=== PATIENT | female | born 1990 | race Caucasian/White ===

== ENCOUNTER 2016-06-23 01:19 | Emergency (ER) | payer OTHER ==
[~2016-06-23] VITALS: Ht 167.6 cm; Wt 60.0 kg
[~2016-06-23 01:19] MED LIST: BCPILLS PO; CLR10 PO; NYQUILL PO
[2016-06-23 01:21] VITALS: TEMP 36.4; Ht 167.6 cm; Wt 60.0 kg
[2016-06-23] MEDS ORDERED: METOCLOPRAMIDE HCL INJ 5 MG/ML 2 ML VIAL IV STA (01:47)
[2016-06-23] MEDS ORDERED: DiphenhydrAMINE HCL 50 MG/ML VIAL IV STA (01:47)
[2016-06-23] MEDS ORDERED: SODIUM CHLORIDE 0.9% 1000ML 1,000 ML IV STA ×2 (01:47)
[2016-06-23] MEDS ORDERED: DICYCLOMINE HCL 10 MG/ML 2 ML AMP IM ONE (02:00)
[2016-06-23 02:31] LABS: HEMATOCRIT 45.5 % (37-47); MEAN CORPUSCULAR HEMOGLOBIN 29.6 pg (25-34); MEAN CORPUSCULAR HGB CONC 35.6 g/dl (32-36); MEAN PLATELET VOLUME 10.9 fL (7.4-10.4); PLATELET COUNT 320 K/uL (130-400); RED BLOOD COUNT 5.48 M/uL (4.2-5.4); WHITE BLOOD COUNT 25.96 K/uL (4.8-10.8)
[2016-06-23 03:03] LABS: BASO % 0.1 %; BASO ABS # 0.03 K/uL (0-0.2); COMPLETE YES; EOS % 0.1 %; IG% 0.3 %; LYMPH % 10.7 %; LYMPH ABS # 2.77 K/uL (1.2-3.4); MONO % 4.1 %; NEUT % 84.7 %
[2016-06-23 03:05] LABS: BUN/CREATININE RATIO 11.4 (10-20); CALCIUM 9.8 mg/dl (8.5-10.1); CREATININE 1.2 mg/dl (0.60-1.20); POTASSIUM 3.4 mmol/L (3.5-5.1); PREG INTERNAL NEGATIVE QC NEG CLEAR BACKGROUND; PREG INTERNAL POSITIVE QC POS CONTROL LINE
--- NOTE | 2016-06-23 05:13 | EMERGENCY ROOM VISIT NOTE ---
History First contact with patient: 01:23 Chief Complaint: GI ASSESSMENT Stated Complaint: STOMACH PAIN - NAUSEA - PASSED OUT Nursing Triage Summary: Pt reports that she has not felt well since Thursday. Pt reports vomiting and diarrhea started tonight around midnight. Pt reports not being able to control her bowels. History of Present Illness The patient is a 25 year old female who presents to the Emergency Room with complaints of nausea, vomiting, diarrhea and lightheadedness for the past day. Patient states she nearly passed out in the bathroom from the vomiting or diarrhea. No recent antibiotics. No well water. Patient denies chest pain, dyspnea, fever, chills, localized abdominal pain, urinary symptoms. She is unable to keep fluids down. Review of Systems See HPI for pertinent positives & negatives. A total of 10 systems reviewed and were otherwise negative. Past Medical/Surgical History None Social History Smoking Status: Never Smoker Smokeless Tobacco Use: No Alcohol Use: none Drug Use: none Marital Status: in relationship Housing Status: lives with significant other Current/Historical Medications Scheduled Control Pills ( Control Pills), 1 TAB PO DAILY Allergies Coded Allergies: No Known Allergies (Unverified , 06/23/16) Physical Exam Vital Signs Date Time Temp Pulse Resp B/P Pulse Ox O2 Delivery O2 Flow Rate FiO2 06/23/16 04:00 77 12 98/74 97 Room Air 06/23/16 03:15 82 19 103/81 99 Room Air 06/23/16 02:30 67 16 91/69 99 Room Air 06/23/16 02:19 67 06/23/16 02:18 68 15 93/66 100 Room Air 06/23/16 01:21 36.4 76 18 101/72 96 Room Air Physical Exam VITALS: Vitals are noted on the nurse's note and reviewed by myself. Vital signs stable. GENERAL: Female, in no acute distress, nondiaphoretic, well-developed well- nourished. SKIN: The skin was without rashes, erythema, edema, or bruising. There is no tenting of the skin. Capillary reflex less than 2 seconds. HEAD: Normocephalic atraumatic. EARS: External auditory canals clear, tympanic membranes pearly calvillo without erythema or effusion bilaterally. EYES: Pupils equal round and reactive to light and accommodation. Conjunctivae without injection, sclerae without icterus. Extraocular movements intact. NOSE: Patent, turbinates without inflammation or discharge. MOUTH: Mucous membranes mildly dry. Pharynx without erythema or exudate. Uvula midline. Airway patent. Tongue does not deviate. NECK: Supple without nuchal rigidity. No lymphadenopathy. No thyromegaly. Cervical spine is nontender. No JVD. HEART: Regular rate and rhythm without murmurs gallops or rubs. LUNGS: Clear to auscultation bilaterally without wheezes, rales or rhonchi. No dullness to percussion. No retractions or accessory muscle use. ABDOMEN: Positive bowel sounds x 4. Normal tympanic percussion. Soft, nontender, without masses or organomegaly. Mobley sign negative. No guarding or rebound tenderness. No CVA tenderness MUSCULOSKELETAL: No muscle atrophy, erythema, or edema noted. NEURO: Patient was alert and oriented to person place and time. Normal sensation to light and sharp touch. No focal neurological deficits. Medical Decision & Procedures Laboratory Results 06/23/16 02:16 Red Blood Count 5.48, Mean Corpuscular Volume 83.0, Mean Corpuscular Hemoglobin 29.6, Mean Corpuscular Hemoglobin Concent 35.6, Mean Platelet Volume 10.9, Neutrophils (%) (Auto) 84.7, Lymphocytes (%) (Auto) 10.7, Monocytes (%) (Auto) 4.1, Eosinophils (%) (Auto) 0.1, Basophils (%) (Auto) 0.1, Neutrophils # (Auto) 21.97, Lymphocytes # (Auto) 2.77, Monocytes # (Auto) 1.07, Eosinophils # (Auto) 0.03, Basophils # (Auto) 0.03 06/23/16 02:16 Test 06/23/16 02:16 White Blood Count 25.96 K/uL (4.8-10.8) Red Blood Count 5.48 M/uL (4.2-5.4) Hemoglobin 16.2 g/dL (12.0-16.0) Hematocrit 45.5 % (37-47) Mean Corpuscular Volume 83.0 fL (80-100) Mean Corpuscular Hemoglobin 29.6 pg (25-34) Mean Corpuscular Hemoglobin Concent 35.6 g/dl (32-36) Platelet Count 320 K/uL (130-400) Mean Platelet Volume 10.9 fL (7.4-10.4) Neutrophils (%) (Auto) 84.7 % Lymphocytes (%) (Auto) 10.7 % Monocytes (%) (Auto) 4.1 % Eosinophils (%) (Auto) 0.1 % Basophils (%) (Auto) 0.1 % Neutrophils # (Auto) 21.97 K/uL (1.4-6.5) Lymphocytes # (Auto) 2.77 K/uL (1.2-3.4) Monocytes # (Auto) 1.07 K/uL (0.11-0.59) Eosinophils # (Auto) 0.03 K/uL (0-0.5) Basophils # (Auto) 0.03 K/uL (0-0.2) RDW Standard Deviation 38.0 fL (36.4-46.3) RDW Coefficient of Variation 12.6 % (11.5-14.5) Immature Granulocyte % (Auto) 0.3 % Immature Granulocyte # (Auto) 0.09 K/uL (0.00-0.02) Anion Gap 14.0 mmol/L (3-11) Est Creatinine Clear Calc Drug Dose 67.6 ml/min Estimated GFR () 73.3 Estimated GFR (Non- 63.2 BUN/Creatinine Ratio 11.4 (10-20) Calcium Level 9.8 mg/dl (8.5-10.1) Human Chorionic Gonadotropin, Qual NEG (NEG) Date/Time Source Procedure Growth Status 06/23/16 01:40 Stool C.difficile Toxin B Gene (PCR) - Final No C. difficile toxin B gene detected Complete Medications Administered Medications (Trade) Dose Ordered Sig/Obie Route Start Time Stop Time Status Last Admin Dose Admin Sodium Chloride (Nss 1000ml) 1,000 ml @ 999 mls/hr Q1H1M STAT IV 06/23/16 01:47 06/23/16 02:47 DC 06/23/16 01:47 999 MLS/HR Metoclopramide HCl (Reglan Inj) 10 mg NOW STAT IV 06/23/16 01:47 06/23/16 01:54 DC 06/23/16 02:23 10 MG Dicyclomine HCl (Bentyl Inj) 20 mg NOW ONCE IM 06/23/16 02:00 06/23/16 02:01 DC 06/23/16 02:24 20 MG ED Course Prior records/ancillary studies reviewed. Triage Nursing notes reviewed. Additional history obtained from the family. The patient's history was concerning for nausea, vomiting, diarrhea, and abdominal pain. Differential diagnosis: Etiologies such as gastroenteritis, food borne illness, infections, appendicitis , diverticulitis, inflammatory bowel disease, obstruction, GI bleed, biliary pathology, as well as others were entertained. Physical examination findings: As above. Abdominal examination revealed no tenderness. Vital signs reviewed and revealed stable. ER treatment provided: IV hydration 1 L NSS. Reglan, Benadryl, fentanyl On reassessment the patient felt better. Patient was tolerating p.o. intake. Diagnostics interpretation by me: The labs revealed leukocytosis, negative C. difficile, no worrisome electrolyte abnormality Patient was tolerating fluids. She is feeling better. She had no abdominal pain on exam. She requested to leave. Patient initially was rolling around and making a scene when she initially arrived. She then settled down after being medicated as above. This appears to be consistent with vomiting and diarrhea. Patient did not have acute abdomen on exam. She is well-appearing. She was tolerating fluids. She is advised to do clear liquid diet today and the progress aside to bland diet tomorrow. She was advised to repeat her CBC in a week as it was elevated. Patient was able to get a hold of her father and states she normally has an elevated white blood count. She still is advised to follow-up for this. Patient denies knowing about an elevated white blood count in the past but She is unsure. She is advised to return to the immediate for abdominal pain, fevers , vomiting, worsening signs or symptoms or as needed. By the evaluation outlined above emergent etiologies such as appendicitis, diverticulitis, obstruction, cardiac sources, mesenteric ischemia, aortic pathology, inflammatory bowel disease, renal colic, PUD, biliary pathology, UTI, as well as others were deemed relatively unlikely. The pt informed about the findings as listed above. All questions were answered and pleased with the treatment. Return instructions were outlined and the patient was discharged in stable condition. Outpatient prescription management: Zofran Referral: The patient was referred to their primary care physician for follow-up in 2 to 3 days for a recheck of the current condition. Medical Decision As above Impression Primary Impression: Nausea vomiting and diarrhea Additional Impression: Leukocytosis Departure Information Dispostion Home / Self-Care Condition GOOD Referrals No Doctor, Assigned (PCP) Patient Instructions [facility] Additional Instructions DO NOT drive, drink alcohol, operate machinery, or perform dangerous activities today. You were given medications in the ER that can affect your ability to safely function or operate a vehicle. Repeat your CBC in one week with family care. It was high today. Zofran(odansetron) tablets 4mg: Take one and allow it to dissolve in your mouth every four to six hours as needed for nausea or vomiting. Acetaminophen(Tylenol) may be used for fever or pain. Use 1000mg every six hours as needed. Avoid using more than 3000mg in a 24 hour period. Rest and drink plenty of fluids as tolerated. Slow sips of water or sports drinks are recommended instead of large amounts all at once. Continue current medications. [place] diet the next few days. Return to the ER for persistent vomiting, fevers, abdominal pain, chest pains, difficulty breathing, black or bloody stools, worsening of your condition, or as needed. Follow up with your primary physician in 2-3 days for a recheck of your current condition. Problem Qualifiers Additional Impression: Leukocytosis Leukocytosis type: unspecified Qualified Codes: D72.829 - Elevated white blood cell count, unspecified
[2016-06-23] MEDS ORDERED: ONDANSETRON HOME PACK 4MG OD TAB ONE (05:17)
[2016-06-23 05:24] VITALS: BP 108/75; PULSE 75; O2SAT 99
== END 2016-06-23 05:25 | disposition home or self-care (01) ==
LOC: C.EDB 01:22
DX: R11.2 Nausea with vomiting, unspecified (principal); R19.7 Diarrhea, unspecified; D72.829 Elevated white blood cell count, unspecified; Z79.3 Long term (current) use of hormonal contraceptives

== ENCOUNTER 2023-02-09 19:16 | Inpatient (IN) ==
[2023-02-09] MEDS ORDERED: LACTATED RINGER'S 1,000 ML IV SCH ×2 (20:00→22:49)
--- NOTE | 2023-02-09 20:05 | History & Physical Report ---
Date of Service February 09, 2023 Assessment & Plan (1) Breech presentation: Plan: Membranes ruptured, breech presentation. Reviewed informed consent in detail, questions answered. Will proceed to . Patient agreeable. History of Present Illness Chief Complaint: rupture of membranes Primary Care Provider: MP PCP 32yo @ 40 03/22, presented to L&D after spontaneous rupture of membranes at home - clear fluid. + movement, no vaginal bleeding. Occasional contractions. Allergies Allergy/AdvReac Type Severity Reaction Status Date / Time No Known Drug Allergies Allergy nka Verified 02/09/23 19:38 Home Medications Medication Instructions Recorded Confirmed Type vit no.95-ferrous 1 tab PO DAILY #90 tabs 04/28/22 02/09/23 Rx fumarate 28 mg-folic acid 800 mcg tablet () Patient History Medical History Migraine PCOS (polycystic ovarian syndrome) Surgical History Nausea and vomiting after administration of anesthetic agent History of removal of skin mole H/O arthroscopic knee surgery right x 2 [place] teeth extracted Family History Other Diabetes Denies family history of Ovarian cancer Breast cancer Colorectal cancer Uterine cancer Social History Smoking Status: Never smoker Second Hand Exposure: No; Do You Dip or Chew Tobacco: No; Hx Alcohol Use: No Hx Substance Use: No Preferred Language: Cameroonian Communication Ability: Effective Word Processing Supervisor Required: No Beliefs That Will Affect Care: None marital status: marital status details: Cristian (29) [phone] Current Living Situation: Spouse Current Living Situation Comment: lives with spouse, 1 dog. 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 Constitutional: WD/WN, vitals as above Respiratory: normal respiratory effort, lungs clear to auscultation no respiratory distress Cardiovascular: Rate/Rhythm: regular rate and regular rhythm Gastrointestinal (Abdomen): Inspection/Auscultation: abdomen normal to inspection Percussion/Palpation: abdomen soft; abdomen nontender Gravid. No s/s chorio or abruption. Skin: no rashes, warm and dry Psychiatric: A+Ox3, euthymic affect Results & Data Vital Signs (Past 12 Hours) Vital Signs Temp Pulse Resp BP 02/09/23 19:38 36.8 C 18 02/09/23 19:34 36.8 C 83 18 106/55 L Monitoring External Monitor FHT Cat 1 [place] occ Coding Level of Care Code None Diagnoses Breech presentation O32.1XX0
[2023-02-09 20:28] LABS: Basophils # (auto) 0.04 K/uL (0.00-0.20); Basophils % (auto) 0.4 %; Eosinophils # (auto) 0.04 K/uL (0.00-0.50); Eosinophils % (auto) 0.4 %; Hematocrit (blood only) 39.5 % (37.0-47.0); Hemoglobin 13.4 g/dl (12.0-16.0); Immature Granulocytes # (auto) 0.04 K/uL (0.01-0.20); Immature Granulocytes % (auto) 0.4 %; Lymphocytes # (auto) 1.97 K/uL (1.20-3.40); Lymphocytes % (auto) 17.6 %; Mean Corpuscular Hemoglobin 29.7 pg (25.0-34.0); Mean Corpuscular Hgb Conc 33.9 g/dL (32.0-36.0); Mean Corpuscular Volume 87.6 fL (80.0-100.0); Mean Platelet Volume 11.5 fL (9.4-12.4); Monocytes # (auto) 0.76 K/uL (0.11-0.59); Monocytes % (auto) 6.8 %; Neutrophils # (auto) 8.33 K/uL (1.40-6.50); Neutrophils % (auto) 74.4 %; Platelet Count 142 K/uL (130-400); RDW Coefficient of Variation 13.2 % (11.5-14.5); RDW Standard Deviation 41.5 fL (36.4-46.3); Red Blood Count 4.51 M/uL (4.20-5.40); White Blood Count 11.18 K/ul (4.8-10.8)
[2023-02-09] MEDS ORDERED: ceFAZolin 2000MG 2,000 MG/15 ML SYR IV SCH (20:30)
[2023-02-09] MEDS ORDERED: CITRIC ACID/SODIUM CITRATE 15 ML UDC PO SCH (20:45)
[2023-02-09] MEDS ORDERED: MoRPHine SULFATE PF 1 MG/ML 10 ML AMP/VIAL ONE (20:45)
--- NOTE | 2023-02-09 20:48 | Anesthesiology Consultation ---
Date of Service February 09, 2023 Assessment & Plan Chart Review Chart Review: Acceptable Risk for Surgery Consults Requested none History Surgery Operation Date: 02/09/23 20:30 Proposed Procedures p Section in - Neida Ladd DO Height/Weight Height: 5 ft 5 in Weight: 81.193 kg Allergies Allergy/AdvReac Type Severity Reaction Status Date / Time No Known Drug Allergies Allergy nka Verified 02/09/23 19:38 Medications Home Medications Medication Instructions Recorded Confirmed Last Taken vit no.95-ferrous 1 tab PO DAILY #90 tabs 04/28/22 02/09/23 02/09/23 08:00 fumarate 28 mg-folic acid 800 mcg tablet () Active Medications Generic Name Dose Route Start Last Admin Trade Name Rupertq PRN Reason Stop Dose Admin Lactated Ringer's 1,000 mls @ 999 mls/hr 02/09/23 20:00 02/09/23 20:25 Lr IV 02/09/23 21:00 999 mls/hr .Q1H1M RENNY Administration NPO Date Last Intake of Fluids: 02/09/23 Time Last Intake of Fluids: 17:00 Date Last Intake of Solids: 02/09/23 Time Last Intake of Solids: 18:00 Past Medical History Medical History Migraine PCOS (polycystic ovarian syndrome) Past Family History Family History Other Diabetes Denies family history of Ovarian cancer Breast cancer Colorectal cancer Uterine cancer Past Surgical History Surgical History Nausea and vomiting after administration of anesthetic agent History of removal of skin mole H/O arthroscopic knee surgery right x 2 [place] teeth extracted Social History Smoking Status: Never smoker Do You Dip or Chew Tobacco: No Hx Alcohol Use: No Hx Substance Use: No substance use type: does not use Physical Exam Vital Signs Last Vital Signs Temp 36.8 C 02/09/23 19:38 Pulse 83 02/09/23 19:34 Resp 18 02/09/23 19:38 BP 106/55 L 02/09/23 19:34 Testing Laboratory Results 02/09/23 20:16
[2023-02-09] MEDS ORDERED: ePHEDrine sulfate 50 MG/ML AMP IV PRN (20:50)
[2023-02-09] MEDS ORDERED: PROMETHAZINE HCL 12.5 MG in SODIUM CHLORIDE 0.9% 50 ML IV PRN (20:50)
[2023-02-09] MEDS ORDERED: LACTATED RINGER'S 500 ML IV PRN (20:50)
[2023-02-09] MEDS ORDERED: NALOXONE HCL 0.08 MG in SYRINGE 1.8 ML IV PRN (20:50)
[2023-02-09] MEDS ORDERED: METOCLOPRAMIDE HCL 10 MG in SODIUM CHLORIDE 0.9% 50 ML IV PRN (20:50)
[2023-02-09] MEDS ORDERED: HYDROmorphone INJ 0.5 MG/0.5 ML SYR IV PRN (20:50)
[2023-02-09] MEDS ORDERED: diphenhydrAMINE 50 MG/ML VIAL IV PRN (20:50)
[2023-02-09] MEDS ORDERED: ONDANSETRON INJ 2 MG/ML 2 ML VIAL IV PRN (20:50)
[2023-02-09] MEDS ORDERED: NALBUPHINE HCL 5 MG in SYRINGE 0 ML IV PRN (20:50)
[2023-02-09] MEDS ORDERED: NALOXONE HCL 1 MG in SODIUM CHLORIDE 0.9% 1,000 ML IV PRN (20:50)
[2023-02-09] MEDS ORDERED: MEPERIDINE HCL 25 MG/ML CARP/VIAL IV PRN (20:50)
[2023-02-09] MEDS ORDERED: MoRPHine SULFATE PF 1 MG/ML 10 ML AMP/VIAL INT SPINAL ONE (20:50)
[2023-02-09] MEDS ORDERED: NALOXONE HCL 0.4 MG/1 ML VIAL/CARP IV PRN (20:50)
[2023-02-09] MEDS ORDERED: ACETAMINOPHEN 1,000 MG/100 ML VIAL IV PRN (20:51)
[2023-02-09] MEDS ORDERED: OXYTOCIN 10 UNITS/ML VIAL ONE (20:53)
[2023-02-09] MEDS ORDERED: PHENYLEPHRINE HCL 10 MG/ML VIAL ONE (20:53)
[2023-02-09] MEDS ORDERED: ePHEDrine sulfate 50 MG/ML AMP ONE (20:54)
[2023-02-09] MEDS ORDERED: NO NARCOTICS OR SEDATIVES SCH (21:00)
[2023-02-09] MEDS ORDERED: SODIUM CHLORIDE 0.9% 1,000 ML IV SCH (21:00)
[2023-02-09] MEDS ORDERED: DC INTRASPINAL MORPHINE SCH (21:00)
[2023-02-09] MEDS ORDERED: fentaNYL citrate PF 100 MCG/2 ML VIAL ONE ×3 (21:27→22:08)
[2023-02-09] MEDS ORDERED: METHYLENE BLUE 0.5% 10 ML VIAL ONE (21:53)
[2023-02-09] MEDS ORDERED: ONDANSETRON INJ 2 MG/ML 2 ML VIAL ONE (22:02)
--- NOTE | 2023-02-09 22:27 | Operative Report ---
PG Post Operative Report Pre & Post Diagnosis Operation Date: 02/09/23 20:30 Pre-Op Diagnosis: 1. Breech Presentation 2. Rupture of membranes Post-Op Diagnosis: 1. Breech Presentation 2. Rupture of membranes I identified the patient and participated in the time-out.: Yes Procedure Operation Date: 02/09/23 20:30 Actual Procedures p Primary Low Transverse Section in , Live female born at 2120 - Neida aLdd DO Surgeon Neida Ladd DO Desk Lieutenant Alyx Rader RN Estimated Blood Loss 600 Findings Consistent with Post-Op Diagnosis Viable Female , Apgars 9/9. Weight 7#4oz. Normal appearing uterus, tubes, ovaries. Specimens cord blood, cord gas, placenta Drains vasquez, clear yellow Anesthesia Type Spinal Complications none Disposition Accompanied Patient To Recovery: No Indications 32yo @ 40 03/22, breech presentation, spontaneous rupture of membranes. Description of Procedure The patient was seen in her labor and delivery room, risks benefits and alternatives to surgery were reviewed. Informed consent obtained. Questions were answered. She was taken to the operating room, spinal anesthesia was administered. She was then prepared and draped in the usual sterile fashion in the supine position with a leftward tilt. Timeout was confirmed. A Pfannenstiel skin incision was made with a scalpel, and carried through to the underlying layer of fascia. Fascia was nicked at midline, and this incision was extended bilaterally. The superior aspect of the fascial incision was grasped with Osman clamps x2, elevated off the underlying rectus abdominis muscles, and dissected sharply and bluntly. In similar fashion, the inferior aspect of the fascial incision was dissected. The rectus abdominis muscles were , and the peritoneum was entered bluntly digitally. This was extended bilaterally. The bladder flap was taken down carefully using Metzenbaum scissors. Using a new scalpel, a low transverse uterine incision was created. Clear amniotic fluid noted. The was delivered from a footling breech presentation. The left foot and leg delivered, followed by buttocks, and the right leg was swept medially for delivery. The bilateral arms were swept medially. The head delivered - no nuchal cord noted. Spontaneous cry on the field. The cord was doubly clamped and cut, and the was handed off to the waiting spring assembler supervisor. A segment was retained for cord gases. Cord blood was obtained. The placenta was delivered spontaneously intact. The uterus was exteriorized, and cleared of all clots and debris. The hysterotomy incision was reapproximated using 0 Vicryl in a running locked stitch. A second layer of the same suture was used to imbricate the incision. The area of the bladder flap had no actively pumping vessels, however was oozing- therefore a piece of surgifoam was used and the superior aspect of the bladder flap was reapproximated to the hysterotomy. The bladder was then backfilled with methylene blue - and bladder was intact, no leakage. Posterior uterus was evaluated and normal. The uterus was returned to the abdomen, and gutters were cleared of clots and debris. Excellent hemostasis was observed. The fascial incision was reapproximated using 0 Vicryl in a running stitch. The subcutaneous tissue was irrigated, and reapproximated using 2-0 plain gut in a running stitch. The skin was reapproximated using 4-0 Vicryl in a running subcuticular stitch. Steri-Strips and a bandage were applied. The patient tolerated the procedure well, and will be taken to the recovery area in stable and good condition. I attest to the content of the Intraoperative Record and any orders documented therein. Any exceptions are noted below. OB Procedure Charges 93044
[2023-02-09 22:44] LABS: Base Excess Cord Venous Blood -0.3 mEq/L (-7.7-1.9); Cord Venous Blood HCO3 24 mmol/L (18.4-26.8); Cord Venous Blood PCO2 38 mmHg (30.4-57.2); Cord Venous Blood PO2 35 mmHg (14.1-43.3); Cord Venous Blood pH 7.41 (7.20-7.44); O2 Saturation Cord Venous Bld 69.5 % (<68)
[2023-02-09 22:45] LABS: Base Excess Cord Arterial Bld -0.9 mEq/L (-9-1.8); CO2 Cord Arterial Blood 49 mmHg (39.1-73.5); HCO3 Cord Arterial Blood 26 mmol/L (19.7-28.5); Oxygen Sat Cord Arterial Blood < 60.0 % (<60); PO2 Cord Arterial Blood 24 mmHg (4.1-31.7); pH Cord Arterial Blood 7.33 (7.1-7.38)
--- NOTE | 2023-02-09 22:48 | Anesthesiology Progress Note ---
Date of Service February 09, 2023 Anesthesia Post Procedure Vital Signs Vital Signs: Temp Pulse Resp BP Pulse Ox 02/09/23 22:46 94 H 99 02/09/23 22:41 92 H 100 02/09/23 22:40 88 123/69 02/09/23 22:36 89 98 02/09/23 22:31 81 123/66 02/09/23 22:29 92 H 100 02/09/23 22:24 87 99 02/09/23 22:22 83 94 02/09/23 22:20 86 118/78 02/09/23 19:38 36.8 C 18 02/09/23 19:34 36.8 C 83 18 106/55 L Transfer of Care Handoff Completed per policy Notes Mental Status: alert / awake / arousable and participated in evaluation Nausea / Vomiting: adequately controlled Pain: adequately controlled Airway Patency, RR, SpO2: stable & adequate BP & HR: stable & adequate Hydration State: stable & adequate Neuraxial Anesthesia: was administered and sensory block is resolving Anesthetic Complications: no major complications apparent and Pt Satisfied with anesthetic care
[2023-02-09] MEDS ORDERED: DIPHTHERIA/TETANUS/PERTUSSIS Vaccine (Tdap, Age 7+yrs) 0.5mL SYR/VL IM ONE (22:49)
[2023-02-09] MEDS ORDERED: BENZOCAINE 20% SPRY 85 APPLN/85 GM CAN EXT PRN (22:49)
[2023-02-09] MEDS ORDERED: SENNA 8.6 MG TAB PO PRN (22:49)
[2023-02-09] MEDS ORDERED: MAGNESIUM HYDROXIDE SUSP 30 ML UDC PO PRN (22:49)
[2023-02-09] MEDS ORDERED: HYDROCORTISONE ACETATE 25 MG SUPP PR PRN (22:49)
[2023-02-09] MEDS: KETOROLAC 30 MG/ML VIAL IV PRN (22:53)
[2023-02-09] MEDS: MoRPHine SULFATE 2 MG/ML CARP IV PRN (23:14)
[2023-02-10] MEDS: OXYTOCIN 30 UNITS/LR 1,003 ML IV SCH ×2 (00:39→09:07)
[2023-02-10] MEDS: MoRPHine SULFATE 2 MG/ML CARP IV PRN (01:27)
--- NOTE | 2023-02-10 04:27 | Obstetrical Progress Note ---
Date of Service <Adolfo Clarke DO - Last Filed: 02/10/23 06:02> February 10, 2023 Assessment & Plan <Adolfo Clarke DO - Last Filed: 02/10/23 06:02> (1) Status post delivery: Plan 32 year old female, , POD#1 s/p : Vitals reviewed, WNL Tolerating clear liquids, vasquez catheter in place, has not yet ambulated Pain well controlled with morphine Routine post-op care - OOB, ambulation, diet progression as tolerated Will have 6 week follow up with Dr. Ladd <Neida Ladd, DO - Last Filed: 02/10/23 07:59> (1) Status post delivery: Subjective <Adolfo Clarke DO - Last Filed: 02/10/23 06:02> Voiding: vasquez catheter in place Passing Gas:: No Diet Tolerance:: clear liquids Lochia:: Moderate Feeding Type:: breast feeding Has not yet ambulated since c/s Pain adequately controlled with morphine Review of Systems -Denies fever or chills -Denies dyspnea, chest pain, or palpitations -Denies dysuria -Denies headache or changes in vision Physical Exam <Adolfo Clarke DO - Last Filed: 02/10/23 06:02> General: Alert and oriented. No acute distress Cardiac: Regular rate and rhythm, no murmurs appreciated Respiratory: Lungs clear to auscultation bilaterally, No increased work of breathing Abdominal: Soft, non-tender, non-distended. Hypoactive bowel sounds Uterus: Uterine fundus firm, palpable below umbilicus Extremities: SCDs in place, no appreciable lower extremity edema, calves non- tender bilaterally Results & Data <Adolfo Clarke DO - Last Filed: 02/10/23 06:02> Vital Signs (Past 12 Hours) Vital Signs Temp Pulse Pulse Resp BP BP Pulse Ox 02/10/23 04:00 16 99 02/10/23 03:02 16 99 02/10/23 02:00 16 99 02/10/23 01:15 02/10/23 01:15 36.6 C 83 16 107/70 99 02/10/23 01:00 02/10/23 01:00 18 98 02/10/23 00:29 86 106/61 02/10/23 00:27 86 99 02/10/23 00:22 103 H 98 02/10/23 00:20 36.8 C 18 02/10/23 00:20 87 98/56 L 02/10/23 00:17 101 H 97 02/10/23 00:12 116 H 96 02/10/23 00:10 112 H 111/67 02/10/23 00:07 107 H 98 02/10/23 00:02 92 H 97 02/10/23 00:00 94 H 110/68 02/09/23 23:57 86 96 02/09/23 23:52 92 H 98 02/09/23 23:50 16 02/09/23 23:50 88 108/68 02/09/23 23:47 101 H 97 02/09/23 23:42 109 H 96 02/09/23 23:40 100 H 115/73 02/09/23 23:37 101 H 96 02/09/23 23:32 102 H 100 02/09/23 23:30 93 H 111/82 02/09/23 23:27 88 99 02/09/23 23:21 97 H 98 02/09/23 23:20 16 02/09/23 23:20 16 02/09/23 23:20 89 117/80 02/09/23 23:16 96 H 98 02/09/23 23:11 83 100 02/09/23 23:10 18 02/09/23 23:10 76 127/82 02/09/23 23:06 82 99 02/09/23 23:01 85 100 02/09/23 23:00 18 02/09/23 23:00 85 127/79 02/09/23 22:56 85 100 02/09/23 22:51 86 100 02/09/23 22:50 18 02/09/23 22:50 85 138/80 02/09/23 22:46 94 H 99 02/09/23 22:41 92 H 100 02/09/23 22:40 18 02/09/23 22:40 88 123/69 02/09/23 22:36 89 98 02/09/23 22:31 81 123/66 02/09/23 22:30 18 02/09/23 22:29 92 H 100 02/09/23 22:24 87 99 02/09/23 22:22 83 94 02/09/23 22:20 36.5 C 18 02/09/23 22:20 86 118/78 02/09/23 19:38 36.8 C 18 02/09/23 19:34 36.8 C 83 18 106/55 L Pulse Ox O2 Del Method O2 Del Method 02/10/23 04:00 02/10/23 03:02 02/10/23 02:00 02/10/23 01:15 Room Air 02/10/23 01:15 Room Air 02/10/23 01:00 98 Room Air 02/10/23 01:00 02/10/23 00:29 02/10/23 00:27 02/10/23 00:22 02/10/23 00:20 02/10/23 00:20 02/10/23 00:17 02/10/23 00:12 02/10/23 00:10 02/10/23 00:07 02/10/23 00:02 02/10/23 00:00 02/09/23 23:57 02/09/23 23:52 02/09/23 23:50 02/09/23 23:50 02/09/23 23:47 02/09/23 23:42 02/09/23 23:40 02/09/23 23:37 02/09/23 23:32 02/09/23 23:30 02/09/23 23:27 02/09/23 23:21 02/09/23 23:20 02/09/23 23:20 02/09/23 23:20 02/09/23 23:16 02/09/23 23:11 02/09/23 23:10 02/09/23 23:10 02/09/23 23:06 02/09/23 23:01 02/09/23 23:00 02/09/23 23:00 02/09/23 22:56 02/09/23 22:51 02/09/23 22:50 02/09/23 22:50 02/09/23 22:46 02/09/23 22:41 02/09/23 22:40 02/09/23 22:40 02/09/23 22:36 02/09/23 22:31 02/09/23 22:30 02/09/23 22:29 02/09/23 22:24 02/09/23 22:22 02/09/23 22:20 02/09/23 22:20 02/09/23 19:38 02/09/23 19:34 Supervising Physician <Neida Ladd DO - Last Filed: 02/10/23 07:59> Co-Signing Physician Notes Resident Physician Supervision Note: I was present with Dr. Clarke during the history and exam. I discussed the case with the resident and agree with the findings and plan as documented in the note. Any exceptions or clarifications are listed here: POD#1 doing well, continue routine postop care. Documented By: Neida Ladd DO Resident Activity Tracking <Adolfo Clarke, - Last Filed: 02/10/23 06:02> Resident Involvement: Resident Care Provided Care Provided: OB Delivery
[2023-02-10 06:43] LABS: Basophils # (auto) 0.03 K/uL (0.00-0.20); Basophils % (auto) 0.2 %; Eosinophils # (auto) 0.03 K/uL (0.00-0.50); Eosinophils % (auto) 0.2 %; Hematocrit (blood only) 31.2 % (37.0-47.0); Hemoglobin 10.8 g/dl (12.0-16.0); Immature Granulocytes # (auto) 0.05 K/uL (0.01-0.20); Immature Granulocytes % (auto) 0.4 %; Lymphocytes # (auto) 1.93 K/uL (1.20-3.40); Lymphocytes % (auto) 14.6 %; Mean Corpuscular Hemoglobin 30.5 pg (25.0-34.0); Mean Corpuscular Hgb Conc 34.6 g/dL (32.0-36.0); Mean Corpuscular Volume 88.1 fL (80.0-100.0); Mean Platelet Volume 11.3 fL (9.4-12.4); Monocytes # (auto) 0.84 K/uL (0.11-0.59); Monocytes % (auto) 6.3 %; Neutrophils # (auto) 10.38 K/uL (1.40-6.50); Neutrophils % (auto) 78.3 %; Platelet Count 133 K/uL (130-400); RDW Coefficient of Variation 13.2 % (11.5-14.5); RDW Standard Deviation 42.2 fL (36.4-46.3); Red Blood Count 3.54 M/uL (4.20-5.40); White Blood Count 13.26 K/ul (4.8-10.8)
[2023-02-10] MEDS: DOCUSATE SODIUM 100 MG CAP PO SCH ×2 (09:06→19:57)
[2023-02-10] MEDS: FERROUS SULFATE 325 MG TAB PO SCH (09:06)
[2023-02-10] MEDS: PRENATAL VITAMIN 1 TAB PO SCH (09:06)
[2023-02-10] MEDS: SIMETHICONE 80 MG CHEW PO SCH ×4 (09:06→23:53)
[2023-02-10] MEDS: KETOROLAC 30 MG/ML VIAL IV PRN (11:03)
[2023-02-10] MEDS ORDERED: PROMETHAZINE HCL 25 MG in SODIUM CHLORIDE 0.9% 50 ML IV PRN (14:50)
[2023-02-10] MEDS ORDERED: ONDANSETRON INJ 2 MG/ML 2 ML VIAL IV PRN (14:50)
[2023-02-10] MEDS ORDERED: KETOROLAC 30 MG/ML VIAL IV PRN (14:50)
[2023-02-10] MEDS ORDERED: diphenhydrAMINE 50 MG/ML VIAL IV PRN (14:50)
[2023-02-10] MEDS ORDERED: diphenhydrAMINE Capsule 25 MG CAP PO PRN (14:50)
[2023-02-10] MEDS: IBUPROFEN 600 MG TAB PO PRN ×2 (15:15→19:56)
[2023-02-10] MEDS: oxyCODONE/ACETAMINOPHEN 5mg/325mg TAB PO PRN ×2 (15:15→19:56)
[2023-02-10] MEDS ORDERED: bisacodyL 5 MG TABEC PO SCH (20:00)
[2023-02-11] MEDS ORDERED: bisacodyL 10 MG SUPP PR PRN
[2023-02-11] MEDS: IBUPROFEN 600 MG TAB PO PRN ×5 (02:21→23:44)
[2023-02-11] MEDS: oxyCODONE/ACETAMINOPHEN 5mg/325mg TAB PO PRN ×5 (02:21→23:43)
--- NOTE | 2023-02-11 04:38 | Obstetrical Progress Note ---
Date of Service <Adolfo Clarke - Last Filed: 02/11/23 06:18> February 11, 2023 Assessment & Plan <Adolfo Clarke - Last Filed: 02/11/23 06:18> (1) Status post delivery: Plan 32 year old female, , POD#2 s/p : Vitals reviewed, WNL Eating well, voiding well, ambulating well Pain well controlled with Percocet and Motrin Routine post-op care - OOB, ambulation, diet progression as tolerated Will have 6 week follow up with Dr. Ladd <Gio Hill MD - Last Filed: 02/12/23 09:36> (1) Status post delivery: Subjective <Adolfo Clarke - Last Filed: 02/11/23 06:18> Ambulation: ambulating normally Voiding: no voiding problems Passing Gas:: Yes Diet Tolerance:: regular diet Lochia:: Moderate Feeding Type:: breast feeding Pain well controlled with Percocet and Motrin Review of Systems -Denies fever or chills -Denies dyspnea, chest pain, or palpitations -Denies dysuria -Denies headache or changes in vision Physical Exam <Adolfo Clarke - Last Filed: 02/11/23 06:18> General: Alert and oriented. No acute distress Cardiac: Regular rate and rhythm, no murmurs appreciated Respiratory: Lungs clear to auscultation bilaterally, No increased work of breathing Abdominal: Soft, non-tender, non-distended. Bowel sounds intact Uterus: Uterine fundus firm, palpable below umbilicus Extremities: SCDs in place, no appreciable lower extremity edema Results & Data <Adolfo Clarke - Last Filed: 02/11/23 06:18> Vital Signs (Past 12 Hours) Vital Signs Temp Pulse Resp BP Pulse Ox O2 Del Method 02/10/23 23:15 36.7 C 94 H 16 100/72 97 Room Air 02/10/23 20:00 36.7 C 89 16 105/74 99 Room Air Supervising Physician <Gio Hill MD - Last Filed: 02/12/23 09:36> Co-Signing Physician Notes Patient seen with resident and agree with the above findings and plan. Routine care Resident Activity Tracking <Adolfo Clarke DO - Last Filed: 02/11/23 06:18> Resident Involvement: Resident Care Provided Care Provided: OB Delivery
[2023-02-11 06:55] LABS: Hematocrit (blood only) 29.5 % (37.0-47.0); Hemoglobin 9.9 g/dl (12.0-16.0)
[2023-02-11] MEDS: DOCUSATE SODIUM 100 MG CAP PO SCH ×2 (08:00→20:05)
[2023-02-11] MEDS: PRENATAL VITAMIN 1 TAB PO SCH (08:00)
[2023-02-11] MEDS: FERROUS SULFATE 325 MG TAB PO SCH (08:00)
[2023-02-11] MEDS: SIMETHICONE 80 MG CHEW PO SCH ×4 (08:00→20:05)
--- NOTE | 2023-02-12 04:30 | Obstetrical Progress Note ---
Date of Service <Adolfo Clarke DO - Last Filed: 02/12/23 05:49> February 12, 2023 Assessment & Plan <Adolfo ClarkeDO - Last Filed: 02/12/23 05:49> (1) Status post delivery: Plan 32 year old female, , POD#3 s/p : Vitals reviewed, WNL Eating well, voiding well, ambulating well Pain well controlled with Percocet and Motrin Routine post-op care - OOB, ambulation, diet progression as tolerated Will have 6 week follow up with Dr. Ladd <Mady Shearer MD - Last Filed: 02/12/23 08:25> (1) Status post delivery: Subjective <Adolfo Clarke DO - Last Filed: 02/12/23 05:49> Ambulation: ambulating normally Voiding: no voiding problems Passing Gas:: Yes Diet Tolerance:: regular diet Lochia:: Moderate Feeding Type:: breast feeding Pain well controlled with Percocet and Motrin Review of Systems -Denies fever or chills -Denies dyspnea, chest pain, or palpitations -Denies dysuria -Denies headache or changes in vision Physical Exam <Adolfo Clarke DO - Last Filed: 02/12/23 05:49> General: Alert and oriented. No acute distress Cardiac: Regular rate and rhythm, no murmurs appreciated Respiratory: Lungs clear to auscultation bilaterally, No increased work of breathing Abdominal: Soft, non-tender, non-distended. Bowel sounds intact Uterus: Uterine fundus firm, palpable below umbilicus Skin: Incision site clean, dry, and intact Extremities: no appreciable lower extremity edema Results & Data <Adolfo Clarke DO - Last Filed: 02/12/23 05:49> Vital Signs (Past 12 Hours) Vital Signs Temp Pulse Resp BP Pulse Ox O2 Del Method 02/11/23 23:25 37.0 C 97 H 20 95/65 L 100 Room Air Supervising Physician <Mady Shearer MD - Last Filed: 02/12/23 08:25> Co-Signing Physician Notes Resident Physician Supervision Note: I interviewed and examined the patient. Discussed with Dr. Calrke and agree with findings and plan as documented in the note. Any exceptions or clarifications are listed here: POD3 s/p pLTCS, doing well. VSS, exam benign and wnl, incision c/d/i. Still has not passed gas but feels like she needs to. Bowel regimen reviewed, rec this AM to make sure can pass gas before dc, otherwise stable for dc after passes gas Documented By: Mady Shearer MD Resident Activity Tracking <Adolfo Clarke, - Last Filed: 02/12/23 05:49> Resident Involvement: Resident Care Provided Care Provided: OB Delivery
[2023-02-12 04:55] VITALS: PULSE 85; TEMP 98.1
[2023-02-12] MEDS: oxyCODONE/ACETAMINOPHEN 5mg/325mg TAB PO PRN ×2 (05:00→10:16)
[2023-02-12] MEDS: IBUPROFEN 600 MG TAB PO PRN ×2 (05:00→10:16)
[2023-02-12] MEDS: DOCUSATE SODIUM 100 MG CAP PO SCH (08:15)
[2023-02-12] MEDS: PRENATAL VITAMIN 1 TAB PO SCH (08:16)
[2023-02-12] MEDS: SIMETHICONE 80 MG CHEW PO SCH (08:16)
[2023-02-12] MEDS: FERROUS SULFATE 325 MG TAB PO SCH (08:16)
[2023-02-12] MEDS ORDERED: POLYETHYLENE (MIRALAX) 17 GM PACK PO SCH (09:00)
[2023-02-12 09:46] VITALS: BP 109/72; RESP 18; O2SAT 96
== END 2023-02-12 11:30 | disposition home or self-care (01) | DRG 788 ==
LOC: OPB 19:16 → 4S1 19:20 → 4E2 02-10 01:03
DX: O32.8XX0 Maternal care for other malpresentation of fetus, not applicable or unspecified; Z37.0 Single live birth; O42.92 Full-term premature rupture of membranes, unspecified as to length of time between rupture and onset of labor; Z3A.39 39 weeks gestation of pregnancy

== ENCOUNTER 2024-07-18 05:39 | Inpatient (IN) ==
--- NOTE | 2024-06-29 08:36 | History & Physical Report ---
Date of Service June 29, 2024 Assessment & Plan (1) Gestational diabetes: (2) Short interval between pregnancies affecting , antepartum: (3) Previous delivery affecting , antepartum: Plan Patient presents today for repeat c/s. The risks of surgery were discussed with the patient including the risks of anesthesia, bleeding requiring transfusion, infection, poor wound healing, urinary retention, damage to surrounding structures including bowels, bladder, vessels, nerves and ureters that may require further surgery, hospitalization or intervention. The other risks of any surgery were discussed including heart attack, blood clots, stroke or . Discussed injury to baby. Discussed hospital course. Consent reviewed and signed. Planned for 07/18 History of Present Illness Chief Complaint: repeat c/s Primary Care Provider: NO PCP Pateint is a 33yowf with iup at 39 0/7 weeks who presents for repeat c/s. Desired but had a too short interval so repeat was recommended. and Delivery Plans Previous *wants to *short interval , not a candidate - pt aware 01/14 and ok with repeat c/s at [facility]. C/S SCHEDULED FOR 07/18/[address] DANIEL Gestational Diabetes Growth u/s's q 4 weeks OB Labs: Blood Type B Positive 12/16/23 Antibody Screen NEGATIVE 12/16/23 Hgb 12.2 g/dl (12.0-16.0) 05/02/24 Hct 36.0 % (37.0-47.0) L 05/02/24 MCV 85.0 fL (80.0-100.0) 12/16/23 Plt Count 157 K/uL (130-400) 12/16/23 Rubella IgG Antibody Immune (Immune) 12/16/23 RPR Nonreactive (Nonreactive) 07/04/22 Treponema pallidum Ab Negative (Negative) 05/02/24 Hep Bs Antigen Negative (Negative) 12/16/23 Hep Bs Antigen NON-REACTIVE (NON-REACTIVE) 07/04/22 Hepatitis C Antibody Negative (Negative) 12/16/23 Hepatitis C Ab (EIA) NON-REACTIVE (NON-REACTIVE) 07/04/22 HIV 1&2 Ab/P24 Ag 4thGn Negative (Negative) 12/16/23 HIV (1&2) Ag & Ab Conf NON-REACTIVE (NON-REACTIVE) 07/04/22 Glucose 1 Hr 50 gm 138 mg/dl (70-130) H 05/02/24 Maternal Serum AFP 27.2 ng/mL 08/29/22 OB Optional Labs: Chlamydia trachomatis RNA Not Detected (NotDetected) 12/16/23 Neisseria gonorrhoeae RNA Not Detected (NotDetected) 12/16/23 Alpha Fetoprotein Triple Screen SEE NOTE 08/29/22 Labs Reviewed: msafp neg smp low risk cfDNA smp Allergies Allergy/AdvReac Type Severity Reaction Status Date / Time No Known Drug Allergies Allergy nka Verified 06/21/24 15:59 Home Medications Medication Instructions Recorded Confirmed Type PNV no.[id number] PO 12/09/23 06/21/24 History [ Gummies] acetone (urine) test (Ketone Urine #50 ea 06/09/24 06/21/24 Rx Test strips) blood sugar diagnostic (OneTouch #150 ea 06/09/24 06/21/24 Rx Verio test strips) blood-glucose meter (OneTouch #1 ea 06/09/24 06/21/24 Rx Verio Reflect Meter) lancets 33 gauge (OneTouch Delica #150 ea 06/09/24 06/21/24 Rx Plus Lancet) Patient History Medical History History of chicken pox contractions PCOS (polycystic ovarian syndrome) Otitis media Migraine Surgical History Status post delivery Nausea and vomiting after administration of anesthetic agent History of removal of skin mole H/O arthroscopic knee surgery [place] teeth extracted Family History Other Diabetes Denies family history of Ovarian cancer Breast cancer Colorectal cancer Uterine cancer Social History Smoking Status: Never smoker Second Hand Exposure: No; Do You Dip or Chew Tobacco: No; Hx Alcohol Use: No Hx Substance Use: No Preferred Language: Slovenian Communication Ability: Effective Associate Professor Of Engineering Required: No Beliefs That Will Affect Care: None marital status: marital status details: Cristian (30) [phone] Current Living Situation: Spouse and Family Current Living Situation Comment: lives with spouse, child, 1 dog. 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 Date GA wks Lbr Lgth wt Sex Type del Anes Place Del Prov ? Comment 02/09/23 39 7lb 4.4oz F C-Sectio n Spinal [facility] Dr. 

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
[2024-07-18] MEDS ORDERED: ACETAMINOPHEN 500 MG TAB PO SCH (06:00)
[2024-07-18] MEDS ORDERED: LACTATED RINGER'S 1,000 ML IV SCH (06:00)
[2024-07-18] MEDS: LACTATED RINGER'S 1,000 ML IV SCH ×2 (06:14→23:45)
[2024-07-18 06:36] LABS: Hematocrit (blood only) 37.1 % (37.0-47.0); Hemoglobin 12.8 g/dl (12.0-16.0); Mean Corpuscular Hemoglobin 29.7 pg (25.0-34.0); Mean Corpuscular Hgb Conc 34.5 g/dL (32.0-36.0); Mean Corpuscular Volume 86.1 fL (80.0-100.0); Mean Platelet Volume 11.3 fL (9.4-12.4); Platelet Count 169 K/uL (130-400); RDW Coefficient of Variation 12.9 % (11.5-14.5); RDW Standard Deviation 40.3 fL (36.4-46.3); Red Blood Count 4.31 M/uL (4.20-5.40); White Blood Count 11.35 K/ul (4.8-10.8)
[2024-07-18] MEDS: ACETAMINOPHEN 500 MG TAB PO SCH (06:40)
[2024-07-18] MEDS ORDERED: MoRPHine SULFATE PF 1 MG/ML 10 ML AMP/VIAL ONE (06:52)
[2024-07-18] MEDS ORDERED: DEXAMETHASONE SOD INJ 4 MG/ML VIAL ONE (07:04)
[2024-07-18] MEDS ORDERED: ONDANSETRON INJ 2 MG/ML 2 ML VIAL ONE (07:04)
[2024-07-18] MEDS ORDERED: METOCLOPRAMIDE HCL INJ 5 MG/ML 2 ML VIAL ONE (07:04)
[2024-07-18] MEDS ORDERED: OXYTOCIN 10 UNITS/ML VIAL ONE ×2 (07:06→07:59)
[2024-07-18] MEDS ORDERED: PHENYLEPHRINE HCL 25 MG/250 ML NSS IV ONE (07:07)
[2024-07-18] MEDS ORDERED: NALOXONE HCL 0.4 MG/1 ML VIAL/CARP IV PRN (07:23)
[2024-07-18] MEDS ORDERED: NALOXONE HCL 1 MG in SODIUM CHLORIDE 0.9% 1,000 ML IV PRN (07:23)
[2024-07-18] MEDS ORDERED: NALOXONE HCL 0.08 MG in SYRINGE 1.8 ML IV PRN (07:23)
[2024-07-18] MEDS ORDERED: PROMETHAZINE 6.25 MG/50.25 ML BAG IV PRN (07:23)
[2024-07-18] MEDS ORDERED: ePHEDrine sulfate 50 MG/ML AMP IV PRN (07:23)
[2024-07-18] MEDS ORDERED: MoRPHine SULFATE 2 MG/ML CARP IV PRN (07:23)
[2024-07-18] MEDS ORDERED: diphenhydrAMINE 50 MG/ML VIAL IV PRN (07:23)
[2024-07-18] MEDS: CITRIC ACID/SODIUM CITRATE 15 ML UDC PO SCH (07:23)
[2024-07-18] MEDS ORDERED: oxyCODONE HCL IR 5 MG TAB (IMMEDIATE RELEASE) PO PRN (07:23)
[2024-07-18] MEDS ORDERED: LACTATED RINGER'S 500 ML IV PRN (07:23)
[2024-07-18] MEDS ORDERED: ONDANSETRON INJ 2 MG/ML 2 ML VIAL IV PRN (07:23)
[2024-07-18] MEDS ORDERED: NALBUPHINE HCL INJ 10 MG/ML AMP IV PRN (07:23)
[2024-07-18] MEDS: ceFAZolin 2,000 MG in SYRINGE 0 ML IV SCH (07:25)
[2024-07-18] MEDS ORDERED: NO NARCOTICS OR SEDATIVES SCH (07:30)
[2024-07-18] MEDS ORDERED: DC INTRASPINAL MORPHINE SCH (07:30)
[2024-07-18] MEDS ORDERED: ePHEDrine sulfate 50 MG/5 ML SYR ONE (08:00)
[2024-07-18] MEDS ORDERED: SENNA 8.6 MG TAB PO PRN (08:31)
[2024-07-18] MEDS ORDERED: BENZOCAINE 20% SPRY 85 APPLN/85 GM CAN EXT PRN (08:31)
[2024-07-18] MEDS ORDERED: CALCIUM CARBONATE 500 MG CHEWABLE TAB PO PRN (08:31)
[2024-07-18] MEDS ORDERED: MAGNESIUM HYDROXIDE SUSP 30 ML UDC PO PRN (08:31)
[2024-07-18] MEDS ORDERED: HYDROCORTISONE ACETATE 25 MG SUPP PR PRN (08:31)
--- NOTE | 2024-07-18 08:47 | Operative Report ---
PG Post Operative Report Pre & Post Diagnosis Operation Date: 07/18/24 07:30 Pre-Op Diagnosis: 1. Term 2. previous c/section Post-Op Diagnosis: Same I identified the patient and participated in the time-out.: Yes Procedure Operation Date: 07/18/24 07:30 Actual Procedures p Repeat lower transverse Section with the of a live female child at 0753. - Jackie Joe MD, FACOG Surgeon Jackie Joe MD, FACOG Equalizer Operator Dr. Juarez Estimated Blood Loss 117 (QBL) Findings Consistent with Post-Op Diagnosis thin catalina noted, nl uterus/tubes/ovs. viable female . apgars 9/9 Fluids 2000cc Specimens none Drains vasquez Anesthesia Type Spinal Complications none Disposition Accompanied Patient To Recovery: Yes Disposition: L&D Indications Patient is a 33yowf with previous c/s. Not a candidate for PATTIE as short interval. Description of Procedure The patient was taken to the operating room where she was identified verbally and by bracelet. She was seated on the operating table where a spinal anesthetic was placed by anesthesia. She was then placed in the supine position with a leftward tilt. A Vasquez catheter was placed sterilely. the patient was prepped and draped in a normal standard fashion. the anesthetic was tested and found to be adequate. A time-out was held, identifying correct patient, procedure, positioning and preoperative antibiotics. There were no concerns. A Pfannenstiel skin incision was made with a knife and taken down to the underlying layer of fascia with the knife and Bovie electrocautery. Bleeding was attended to with the Bovie. The fascia was incised in the midline with the knife and taken out laterally with scissors. The superior edge of the fascial incision was grasped, elevated and the underlying layer of rectus muscle was taken off bluntly and with scissors. In a similar fashion, the inferior edge of the fascial incision was grasped, elevated and the underlying layer of rectus muscle was taken off bluntly and with scissors. The muscles were . The peritoneum was entered bluntly. The incision was then stretched. The bladder blade was placed. The vesicouterine peritoneum was identified, entered with scissors and taken out laterally with scissors. The bladder flap was created digitally A hysterotomy incision was scored with a knife and the incision was stretched superiorly and inferiorly with the varnishing unit operator's fingers. The operators hand was placed into the incision and we had difficulty delivering the head. A vacuum was called for and was placed once wiht a pop off. It was reapplied and then with fundal pressure the head was delivered. Loose nuchal cord x 1 was reduced. The nose and mouth were bulb suctioned. the rest of the infant was then delivered without difficulty. The nose and mouth were again bulb suctioned. The cord was clamped and cut and the infant was then handed off to the awaiting circulation tender for drying and attention. Cord blood and segment were obtained. The placenta was expressed. The uterus was exteriorized and cleared of all clot and debris with moistened laparotomy sponges. The hysterotomy incision was repaired in one layer as it was hemostatic and the lower uterine segment was very thin and there was concern for tearing. Hemostasis was noted to be good. Posterior cul-de-sac was irrigated and cleared of all clot and debris. The hys terotomy incision was again inspected and one suture was needed in the left corner. Hemostasis was then good. the uterus was reinteriorized. Hysterotomy incision was again inspected and found to be hemostatic. Rectus muscles were hemostasis. The fascia was then reapproximated with 0 Vicryl starting at the edges and meeting in the midline. The subcuticular tissues were copiously irrigated and bleeding was attended to with cautery. The skin was then closed with 4-0 Vicryl in a subcuticular fashion. All sponge, lap and needle counts were correct x 2. the patient tolerated the procedure well and taken to the recovery room in stable condition. I attest to the content of the Intraoperative Record and any orders documented therein. Any exceptions are noted below.
[2024-07-18] MEDS: KETOROLAC 30 MG/ML VIAL IV SCH (08:52)
[2024-07-18] MEDS: OXYTOCIN 20 UNITS/LR 1,002 ML IV SCH ×2 (11:12→20:12)
[2024-07-18] MEDS: DIPHTHER/TETAN/PERTUS Vaccine (Tdap, Adol/Adult) 0.5mL IM ONE (12:05)
--- NOTE | 2024-07-18 12:12 | Anesthesiology Progress Note ---
Date of Service July 18, 2024 Anesthesia Post Procedure Vital Signs Vital Signs: Temp Pulse Resp BP Pulse Ox 07/18/24 11:14 71 109/62 07/18/24 11:09 86 98 07/18/24 11:04 91 H 96 07/18/24 10:59 85 96 07/18/24 10:54 91 H 96 07/18/24 10:49 84 97 07/18/24 10:44 85 96 07/18/24 10:39 91 H 96 07/18/24 10:34 84 97 07/18/24 10:29 88 95 07/18/24 10:28 85 91 07/18/24 10:24 89 96 07/18/24 10:23 95 H 117/56 L 07/18/24 10:20 20 07/18/24 10:19 89 96 07/18/24 10:14 93 H 96 07/18/24 10:09 96 07/18/24 10:09 87 07/18/24 10:09 88 103/59 L 07/18/24 10:04 83 96 07/18/24 09:59 89 97 07/18/24 09:54 83 97 07/18/24 09:50 18 07/18/24 09:50 78 102/58 L 07/18/24 09:49 86 97 07/18/24 09:44 99 H 96 07/18/24 09:39 97 H 96 07/18/24 09:34 85 97 07/18/24 09:29 98 07/18/24 09:29 87 07/18/24 09:29 93 H 97/72 L 07/18/24 09:28 84 92 07/18/24 09:24 99 H 96 07/18/24 09:20 20 07/18/24 09:19 96 H 107/69 97 07/18/24 09:14 95 H 97 07/18/24 09:10 20 07/18/24 09:09 97 07/18/24 09:09 86 07/18/24 09:09 89 108/63 07/18/24 09:04 95 H 95 07/18/24 09:00 20 07/18/24 08:59 91 H 114/65 98 07/18/24 08:54 92 H 97 07/18/24 08:50 20 07/18/24 08:49 98 H 107/62 98 07/18/24 08:44 85 97 07/18/24 08:40 20 07/18/24 08:39 73 105/59 L 100 07/18/24 08:34 78 98 07/18/24 08:30 20 07/18/24 08:29 97 07/18/24 08:29 85 07/18/24 08:29 101 H 101/62 07/18/24 08:24 88 97 07/18/24 08:21 88 94 07/18/24 08:20 36.3 C L 20 07/18/24 08:19 96 07/18/24 08:19 85 07/18/24 08:19 83 104/65 07/18/24 06:13 36.5 C 99 H 20 96/61 L Transfer of Care Handoff Completed per policy Notes Mental Status: alert / awake / arousable Patient Amnestic to Procedure: Yes Nausea / Vomiting: adequately controlled Pain: adequately controlled Airway Patency, RR, SpO2: stable & adequate BP & HR: stable & adequate Hydration State: stable & adequate Neuraxial Anesthesia: was administered and sensory block is resolving Anesthetic Complications: no major complications apparent
--- NOTE | 2024-07-18 15:23 | Communication Note ---
Date of Service: July 18, 2024 Called because of continued small amounts of blood loss. Nursing notes qbl up to this point is 850cc. Vitals are stable and normal. Patient is feeling well. On exam, there is clot noted in the catalina, it was broken up with my fingers and expressed until not much remained. the uterus if very firm 1-2 below u. Patient tolerated exam. Will continue to monitor. that weighed 130cc so total is 980cc.
[2024-07-18] MEDS: SIMETHICONE 80 MG CHEW PO SCH (15:36)
[2024-07-18] MEDS: ACETAMINOPHEN 325 MG TAB PO SCH (15:36)
[2024-07-18] MEDS: miSOPROStoL 200 MCG TAB PR ONE (17:06)
[2024-07-18] MEDS: METHYLERGONOVINE MALEATE 0.2 MG/ML AMP IM PRN (17:07)
[2024-07-18] MEDS ORDERED: fentaNYL citrate PF 100 MCG/2 ML VIAL ONE (17:12)
[2024-07-18] MEDS ORDERED: MIDAZOLAM HCL 1 MG/ML 2ML VIAL ONE (17:13)
[2024-07-18] MEDS: MIDAZOLAM HCL 1 MG/ML 2ML VIAL IV STA (17:16)
[2024-07-18] MEDS: fentaNYL citrate PF 100 MCG/2 ML VIAL IV STA (17:16)
[2024-07-18 17:24] LABS: Hematocrit (blood only) 33.4 % (37.0-47.0); Hemoglobin 11.6 g/dl (12.0-16.0); Mean Corpuscular Hemoglobin 29.7 pg (25.0-34.0); Mean Corpuscular Hgb Conc 34.7 g/dL (32.0-36.0); Mean Corpuscular Volume 85.4 fL (80.0-100.0); Mean Platelet Volume 11.1 fL (9.4-12.4); Platelet Count 169 K/uL (130-400); RDW Coefficient of Variation 12.8 % (11.5-14.5); Red Blood Count 3.91 M/uL (4.20-5.40); White Blood Count 18.55 K/ul (4.8-10.8)
--- NOTE | 2024-07-18 17:29 | Communication Note ---
Date of Service: July 18, 2024 Called to beside again because of concern for bleeding. Saturated a chux with >200cc, minimal clot. Decision made to move to labor and delivery to insert Maury a. Patient transferred to l and d. 800mcg cytotec given. im methergen given, continues with dilute pitocin now open. Attempted to place Priyanka but too uncomfortable. Anesthesia called and Dr. Croft was able to give her conscious sedation. Was able to get fingers into catalina and could palpate clot. Blood squirted out from the uterus when moving down the bed. Priyanka successfully placed. Balloon filled with 120cc. Blood in the tubing. Tolerated well. Labs pending. Plan to T&C for 1 and also give TXA. Vitals continue to be stable.
[2024-07-18] MEDS ORDERED: SODIUM CHLORIDE 0.9% 100 ML IV PRN (17:31)
--- NOTE | 2024-07-18 17:35 | Communication Note ---
Date of Service: July 18, 2024 Called to help with patient to help with insertion of intrauterine balloon for continued bleeding after her c section this am. Vitals stable - unable to winter ate Dr Joe putting in balloon as she is extremely anxious. Patient ate a snack early afternoon so I offered light sedation for an attempt and explained that if that isn't enough we would need to go to the OR for a general anesthetic - patient agrees and would would like to avoid the general if possible - Oxygen mask at 5L, Gave her midazolam 2mg and fentanyl 50 mcg IV - relaxed but still answers questions - Dr Joe was able to get the balloon in - patient tolerated well and feels well afterward - vitals continue to be stable - patient resting but easily arousable.
[2024-07-18] MEDS: TRANEXAMIC ACID / 0.7% NACL 1,000 MG/100 ML BAG IV STA (17:46)
[2024-07-18 17:56] LABS: INR 0.9 (0.9-1.1); Partial Thromboplastin Ratio 0.9; Partial Thromboplastin Time 24 Seconds (21-31)
--- NOTE | 2024-07-18 18:12 | Communication Note ---
Date of Service: July 18, [address] h/h stable at 11.6, plts--169, coags wnl. Some blood noted in the tubing, very slow. ff/rock hard at u. Plan on probably keeping the Priyanka on suction for 2-3 hours. Patient resting. Vitals continue to be stable.
[2024-07-18] MEDS: miSOPROStoL 200 MCG TAB ONE ×2 (18:33)
[2024-07-18] MEDS: METHYLERGONOVINE MALEATE 0.2 MG/ML AMP ONE (18:33)
--- NOTE | 2024-07-18 18:47 | Communication Note ---
Date of Service: July 18, 2024 More awake. Priyanka in for about 1.5 hours. There is blood through the tubing almost to the canister. The uterus is firm at u. Patient noted a little gush and nursing noted about 20cc on her pad. Vitals continue to be stable. qbl around 1400cc at this point. continue to monitor closely. Certainly less bleeding than before.
[2024-07-18] MEDS: ceFAZolin 1000MG 1,000 MG/7.5 ML SYR IV SCH (19:59)
[2024-07-18] MEDS ORDERED: Nursing to Pharmacy Communication SCH (20:30)
--- NOTE | 2024-07-18 21:02 | Communication Note ---
Date of Service: July 18, 2024 Priyanka in for three hours and significantly decreased bleeding. Uterus rock hard at U. Having minimal bleeding. Would not expect no bleeding as just had a c/s. Discussed options at this point. 1. At this point, could consider stop vacuum. Monitor. If good consider removal, and then monitor. 2. Leave it in a bit longer. Not sure what the benefit would be as we have achieved the intended response--significantly decreased bleeding and time to have our uterotonics work. (per the package insert, should not be left in for more than 24 hours.) If bleeding resumes, will need to go to the OR for evaluation. If we do that, there is a good chance she might need a hyster if we are unable to get the bleeding to decrease. The risks of surgery were discussed with the patient including the risks of anesthesia, bleeding requiring transfusion, infection, poor wound healing, urinary retention, damage to surrounding structures including bowels, bladder, vessels, nerves and ureters that may require further surgery, hospitalization or intervention. The other risks of any surgery were discussed including heart attack, blood clots, stroke or . discussed that they hyster would likely be supracervical. discussed that there would be other things we might try to help with bleeding such as B haley stitch, uterine artery stitch. Although they were perhaps considering another child in a few years, she expresses understanding of the potential of hyster if we cannot control bleeding, it is the only way to resolve as we have exhausted medical and c onservative therapies. Vaccum is d/c at this point and will monitor very closely. Total qbl 1638--additional 175 cc in canister and tubing and 37 cc on pad.
[2024-07-18] MEDS: DOCUSATE SODIUM 100 MG CAP PO SCH (21:10)
--- NOTE | 2024-07-18 21:39 | Communication Note ---
Date of Service: July 18, 2024 Scant blood on pad just were the end of the Priyanka is. Now no suction for one hour. Fundus still firm. Water removed from the balloon and Priyanka removed. Fundus still firm , no additional blood. Vitals stable. Will continue to monitor very closely. The next couple of hours will be critical.
--- NOTE | 2024-07-18 22:48 | Communication Note ---
Date of Service: July 18, 2024 It's been over an hour since removal and have had scant bleeding. Fundus still very firm at u. Now q 30 min checks and then hourly checks overnight. will st ay on labor and delivery for monitoring overnight. Very hopeful at this point.
[2024-07-18 22:59] LABS: Hematocrit (blood only) 27.1 % (37.0-47.0); Hemoglobin 9.4 g/dl (12.0-16.0); Mean Corpuscular Hgb Conc 34.7 g/dL (32.0-36.0); Mean Corpuscular Volume 86.6 fL (80.0-100.0); Mean Platelet Volume 11.4 fL (9.4-12.4); Platelet Count 154 K/uL (130-400); RDW Coefficient of Variation 12.7 % (11.5-14.5); Red Blood Count 3.13 M/uL (4.20-5.40); White Blood Count 16.01 K/ul (4.8-10.8)
--- NOTE | 2024-07-18 23:57 | Communication Note ---
Date of Service: July 18, 2024 Has been sitting up and breast feeding. Very minimal bleeding. Vitals stable. Now 3 hours from d/c vacuum. Doing well. continue to monitor here overnight. Repeat labs show hgb of 9.4. plts stable. repeat labs at 6am.
[2024-07-19] MEDS ORDERED: PROMETHAZINE 12.5 MG/50.5 ML BAG IV PRN (02:08)
[2024-07-19] MEDS ORDERED: oxyCODONE HCL IR 5 MG TAB (IMMEDIATE RELEASE) PO PRN (02:08)
[2024-07-19] MEDS ORDERED: HYDROmorphone INJ 0.5 MG/0.5 ML SYR IV PRN (02:08)
[2024-07-19] MEDS ORDERED: diphenhydrAMINE 50 MG/ML VIAL IV PRN (02:08)
[2024-07-19] MEDS ORDERED: diphenhydrAMINE Capsule 25 MG CAP PO PRN (02:08)
[2024-07-19] MEDS ORDERED: ONDANSETRON INJ 2 MG/ML 2 ML VIAL IV PRN (02:08)
[2024-07-19 06:36] LABS: Basophils # (auto) 0.05 K/uL (0.00-0.20); Basophils % (auto) 0.4 %; Eosinophils # (auto) 0.04 K/uL (0.00-0.50); Eosinophils % (auto) 0.4 %; Hematocrit (blood only) 24.9 % (37.0-47.0); Hemoglobin 8.5 g/dl (12.0-16.0); Immature Granulocytes # (auto) 0.05 K/uL (0.01-0.20); Immature Granulocytes % (auto) 0.4 %; Lymphocytes # (auto) 3.46 K/uL (1.20-3.40); Lymphocytes % (auto) 30.9 %; Mean Corpuscular Hemoglobin 29.7 pg (25.0-34.0); Mean Corpuscular Hgb Conc 34.1 g/dL (32.0-36.0); Mean Corpuscular Volume 87.1 fL (80.0-100.0); Mean Platelet Volume 10.6 fL (9.4-12.4); Monocytes # (auto) 0.78 K/uL (0.11-0.59); Neutrophils # (auto) 6.82 K/uL (1.40-6.50); Neutrophils % (auto) 60.9 %; Platelet Count 141 K/uL (130-400); RDW Coefficient of Variation 12.7 % (11.5-14.5); RDW Standard Deviation 40.1 fL (36.4-46.3); Red Blood Count 2.86 M/uL (4.20-5.40)
[2024-07-19] MEDS: SODIUM CHLORIDE 0.9% 1,000 ML IV SCH (06:59)
--- NOTE | 2024-07-19 06:59 | Obstetrical Progress Note ---
Date of Service July 19, 2024 Assessment & Plan (1) Encounter for assessment: (2) hemorrhage: Plan QBL in the 1700cc range. Uterus is rock hard and scant bleeding now. Vitals have been stable. Plan to transfer back to the floor. Begin routine pp c/s care. cbc pending for this am. Did discuss the potential for transfusion. Breast feeding well. Subjective Patient had an overall good night. Notes she is very tired and did not sleep well. Bleeding has been scant overnight. uop 700cc for shift. Has picked up after a bolus and increasing fluid. Physical Exam Constitutional WD/WN, vitals as above Cardiovascular Extremities: + edema (tr); no calf tenderness Gastrointestinal (Abdomen) soft, nt ff/very firm at u Psychiatric A+Ox3, euthymic affect Results & Data Vital Signs (Past 12 Hours) Vital Signs Temp Pulse Resp BP Pulse Ox O2 Del Method 07/19/24 06:53 94 H 98 07/19/24 06:48 84 98 07/19/24 06:43 73 99 07/19/24 06:38 83 99 07/19/24 06:33 82 99 07/19/24 06:28 96 H 99 07/19/24 06:23 87 99 07/19/24 06:18 89 98 07/19/24 06:13 84 99 07/19/24 06:08 85 100 07/19/24 06:03 80 100 07/19/24 05:58 89 100 07/19/24 05:57 87 117/70 07/19/24 05:53 85 99 07/19/24 05:48 83 100 07/19/24 05:43 78 100 07/19/24 05:38 75 100 07/19/24 05:34 101 H 133/62 07/19/24 05:33 104 H 98 07/19/24 05:28 74 96 07/19/24 05:23 74 96 07/19/24 05:18 78 96 07/19/24 05:15 18 97 07/19/24 05:13 80 97 07/19/24 05:08 83 97 07/19/24 05:03 79 97 07/19/24 04:58 76 97 07/19/24 04:53 78 98 07/19/24 04:48 78 98 07/19/24 04:43 80 98 05/06/25 04:38 79 98 05/06 04:34 70 104/65 05/0625 04:33 80 98 05/0625 04:28 80 98 05/0625 04:23 77 98 05/06 04:18 77 97 05/06 04:13 82 98 0506 04:08 85 97 05/06 04:03 80 96 05/06 04:00 18 97 0506 03:58 82 96 05/06 03:53 79 97 05/0625 03:48 75 96 05/06 03:43 73 96 05/06 03:38 85 97 05/06 03:34 90 118/64 0506 03:33 89 97 05/06 03:28 73 95 0506 03:23 81 98 05/06 03:18 78 95 0506 03:13 90 99 0506 03:08 87 98 0506 03:03 89 98 0506 03:00 37.2 C 18 07/19/24 03:00 18 95 05/06 02:58 92 H 97 05/06 02:53 100 H 98 05/06 02:48 91 H 97 05/06 02:43 88 97 05/06 02:38 82 97 0506 02:34 83 105/66 05/0625 02:33 82 98 05/06 02:30 18 100 05/0625 02:28 86 100 05/0625 02:23 81 99 05/0625 02:18 86 100 05/06 02:13 77 98 05/06 02:08 77 98 05/06 02:03 88 98 05/06 02:00 18 100 05/0625 01:58 85 100 05/0625 01:53 88 100 05/0625 01:48 79 99 05/06/25 01:43 78 99 05/06/25 01:38 81 98 05/06/25 01:34 78 109/71 05/06/25 01:33 81 99 05/06/25 01:28 85 98 05/06/25 01:23 80 100 05/06/25 01:18 80 100 05 01:13 90 100 05 01:08 87 99 05 01:03 80 98 05 01:00 18 98 05 00:58 80 98 05 00:53 79 99 05 00:48 85 98 05 00:43 78 98 05 00:38 81 98 05 00:34 76 102/54 L 05 00:33 78 97 05 00:28 83 98 05 00:23 81 96 05 00:18 86 98 05 00:13 81 98 05 00:08 83 98 05 00:03 84 97 07/19/24 00:00 18 97 0505 23:58 98 0505 23:58 84 05/05 23:53 97 05/05 23:53 80 0505 23:48 18 0505 23:48 98 0505 23:48 89 05/05 23:43 97 0505 23:43 83 0505 23:38 98 0505 23:38 88 0505 23:33 98 0505 23:33 94 H 0505 23:28 98 05/0525 23:28 98 H 0505 23:23 99 0505 23:23 91 H 0505 23:18 97 05/0525 23:18 90 05/0525 23:14 89 05/0525 23:14 100/65 05/0525 23:13 98 05/0525 23:13 98 H 05/05 23:08 98 0505 23:08 102 H 0505 23:03 98 0505 23:03 91 H 050525 22:59 94 H 05/0525 22:59 104/71 05/0525 22:58 99 05/0525 22:58 93 H 05/0525 22:55 18 98 05/05/25 22:53 37.4 C 18 Room Air 05/05 22:53 98 05/05 22:53 88 05/05/ 22:48 100 05/05 22:48 108 H 05/05 22:44 86 05/05/25 22:44 107/69 05/05/ 22:43 100 05/05/25 22:43 91 H 05/05 22:38 100 05/05/25 22:38 89 05/05 22:33 89 16 107/66 100 05/05/25 22:33 100 05/05 22:33 83 05/05/ 22:29 97 H 05/05 22:29 107/66 05/05 22:28 100 05/05 22:28 97 H 05/05/ 22:23 100 05/0525 22:23 93 H 05/05/25 22:18 99 05/05/25 22:18 93 H 05/05 22:15 37.3 C 89 18 109/76 97 05/05/ 22:14 84 05/05/25 22:14 109/76 05/05/ 22:13 97 05/05/25 22:13 86 05/05/ 22:08 96 05/05/ 22:08 83 05/05/ 22:03 100 05/05/ 22:03 88 05/05 22:00 16 100 05/05/25 22:00 36.8 C 89 16 107/75 100 05/05/25 21:59 80 05/05/25 21:59 107/75 05/05/25 21:58 100 05/05/25 21:58 89 05/05/25 21:53 100 05/05/25 21:53 82 05/05/25 21:48 100 05/05/25 21:48 88 05/05/25 21:45 88 14 112/72 100 05/05/25 21:44 82 05/05/25 21:44 112/72 05/05/25 21:43 100 05/05/25 21:43 87 05/05/25 21:38 100 05/05/25 21:38 84 05/05/25 21:33 100 05/05/25 21:33 91 H 05/05/25 21:30 94 H 18 113/71 100 05/05/25 21:29 84 05/05/25 21:29 113/71 05/05/25 21:28 98 05/05/25 21:28 90 05/05/25 21:23 100 05/05/25 21:23 91 H 05/05/25 21:18 100 05/05/25 21:18 92 H 05/05/25 21:15 36.7 C 79 16 118/70 100 05/05/25 21:15 36.7 C 79 16 118/70 100 05/05/25 21:14 90 05/05/25 21:14 118/70 05/05/25 21:13 100 05/05/25 21:13 86 05/05/25 21:08 100 05/05/25 21:08 84 05/05/25 21:03 96 05/05/25 21:03 88 05/05/25 21:00 100 H 16 117/67 100 05/05/25 21:00 100 H 16 117/67 100 05/05/25 21:00 16 100 05/05/25 20:59 100 H 05/05/25 20:59 117/67 05/05/25 20:58 100 05/05/25 20:58 90 05/05/25 20:53 100 05/05/25 20:53 91 H 05/05/25 20:52 94 05/05/25 20:52 101 H 05/05/25 20:48 95 05/05/25 20:48 89 05/05/25 20:45 86 18 123/75 100 05/05/25 20:44 91 05/05/25 20:44 86 05/05/25 20:44 123/75 05/05/25 20:43 100 05/05/25 20:43 113 H 05/05/25 20:38 100 05/05/25 20:38 92 H 05/05/25 20:33 90 05/05/25 20:33 97 H 05/05/25 20:31 91 05/05/25 20:31 101 H 05/05/25 20:30 100 H 18 112/63 100 05/05/25 20:30 80 05/05/25 20:30 112/63 05/05/25 20:28 100 05/05/25 20:28 89 0505 20:23 100 0505 20:23 92 H 0505 20:18 100 0505 20:18 88 05 20:15 84 16 108/56 L 100 05 20:15 83 05 20:15 108/56 L 0505 20:13 100 0505 20:13 86 0505 20:08 100 0505 20:08 93 H 0505 20:03 100 0505 20:03 88 0505 20:00 37.1 C 89 18 137/58 L 100 05 20:00 18 100 0505 19:59 86 05 19:59 137/58 L 05 19:58 100 0505 19:58 81 0505 19:53 100 0505 19:53 96 H 05 19:48 100 0505 19:48 74 0505 19:45 74 16 120/63 100 05/05 19:45 83 0505 19:45 120/63 0505 19:43 100 0505 19:43 89 0505 19:38 100 0505 19:38 93 H 0505 19:33 100 0505 19:33 83 0505 19:30 37.2 C 82 16 119/77 100 0505 19:29 82 0505 19:29 119/77 0505 19:28 100 0505 19:28 84 0505 19:28 93 0505 19:28 93 H 0505 19:23 100 0505 19:23 82 0505 19:18 100 0505 19:18 77 0505 19:15 16 100 0505 19:15 37.2 C 80 16 114/77 100 0505 19:15 Room Air 0505 19:14 77 0505 19:14 114/77 0505 19:13 100 07/18/24 19:13 76 07/18/24 19:08 100 07/18/24 19:08 82 07/18/24 19:03 99 07/18/24 19:03 74 07/18/24 18:59 76 07/18/24 18:59 118/79 07/18/24 18:58 100 07/18/24 18:58 78
[2024-07-19] MEDS: MoRPHine SULFATE PF 1 MG/ML 10 ML AMP/VIAL INT SPINAL ONE (07:00)
[2024-07-19] MEDS ORDERED: KETOROLAC 30 MG/ML VIAL IV PRN (08:27)
[2024-07-19] MEDS: IBUPROFEN 600 MG TAB PO SCH (08:32)
[2024-07-19] MEDS: FERROUS SULFATE 325 MG TAB PO SCH (08:32)
[2024-07-19] MEDS: PRENATAL VITAMIN 1 TAB PO SCH (08:32)
[2024-07-19 15:59] VITALS: O2SAT 99
[2024-07-19] MEDS: bisacodyL 5 MG TABEC PO SCH (20:34)
[2024-07-20 06:23] LABS: Hematocrit (blood only) 25.8 % (37.0-47.0); Hemoglobin 8.7 g/dl (12.0-16.0)
--- NOTE | 2024-07-20 07:04 | Obstetrical Progress Note ---
Date of Service July 20, 2024 Assessment & Plan (1) Encounter for assessment: Plan: Patient is POD 2 s/p rLTCS and doing well - Eating well, voiding well, ambulating well - vitals reviewed and within normal limits - pain well controlled with analgesics - OOB, ambulation, diet progression as tolerated - Blood type: B+, GBS neg, rubella immune - Plan to discharge today - After discharge, 6 week follow up with [facility] OBGYN Admission and Anticipated Discharge Date Admission Date: July 18, 2024 Supervising Physician Co-Signing Physician Notes Resident Physician Supervision Note: I interviewed and examined the patient. Discussed with Dr. Clarke and agree with findings and plan as documented in the note. Any exceptions or clarifications are listed here: [ ] Documented By: Joselin Beard MD, FACOG Subjective 33 yo post-operative day 2 s/p Ambulation: ambulating normally Voiding: no voiding problems Passing Gas:: Yes Diet Tolerance:: regular diet Lochia:: Small Feeding Type:: breast feeding Current Pain Level:3/10 Resting comfortably this AM in NAD. Denies PAUL, CP, SOB, N/V/D, LE pain/swelling. Physical Exam Physical Exam: General: patient resting comfortably, NAD, non-toxic in appearance, answers questions appropriately. Skin: warm, dry, intact HEENT: NC/AT, anicteric sclera, conjunctiva without injection, moist mucus membranes. Heart: +S1/S2, regular, no m/r/g Lungs: equal air entry bilaterally, no rales/rhonchi/wheezes Abd: +BS, soft, NT/ND, uterine fundus firm at umbilicus, caesarean incision clean and healing well without increased erythema. Ext: warm, no clubbing/cyanosis or edema Neuro: nonfocal, speech intact, no facial droop, moving all extremities. Results & Data Vital Signs (Past 12 Hours) Vital Signs Temp Pulse Resp BP O2 Del Method 07/19/24 23:36 36.8 C 92 H 14 101/68 Room Air 07/19/24 20:00 37.3 C 105 H 14 108/73 Room Air Resident Activity Tracking Resident Involvement: Resident Care Provided Care Provided: OB Delivery
[2024-07-20] MEDS ORDERED: bisacodyL 10 MG SUPP PR PRN (08:27)
[2024-07-20] MEDS: IBUPROFEN 600 MG TAB PO PRN (08:31)
[2024-07-20 09:15] VITALS: BP 105/72; PULSE 88; RESP 18; TEMP 98.4
--- NOTE | 2024-07-20 13:54 | Communication Note ---
Date of Service: July 20, 2024 Patient getting ready for discharge, requesting Percocet rx, not ordered this morning during rounds. I sent #10 tabs to her pharmacy on file, PAPDMP checked.
[2024-07-20] MEDS ORDERED: ACETAMINOPHEN 325 MG TAB PO PRN (14:27)
--- NOTE | 2024-07-21 13:31 | Discharge Summary ---
Date of Service July 21, 2024 Admission HPI Per Admitting Provider Pateint is a 33yowf with iup at 39 0/7 weeks who presents for repeat c/s. Desired but had a too short interval so repeat was recommended. and Delivery Plans Previous *wants to *short interval , not a candidate - pt aware 01/14 and ok with repeat c/s at [facility]. C/S SCHEDULED FOR 07/18/[address] DANIEL Gestational Diabetes Growth u/s's q 4 weeks OB Labs: Blood Type B Positive 12/16/23 Antibody Screen NEGATIVE 12/16/23 Hgb 12.2 g/dl (12.0-16.0) 05/02/24 Hct 36.0 % (37.0-47.0) L 05/02/24 MCV 85.0 fL (80.0-100.0) 12/16/23 Plt Count 157 K/uL (130-400) 12/16/23 Rubella IgG Antibody Immune (Immune) 12/16/23 RPR Nonreactive (Nonreactive) 07/04/22 Treponema pallidum Ab Negative (Negative) 05/02/24 Hep Bs Antigen Negative (Negative) 12/16/23 Hep Bs Antigen NON-REACTIVE (NON-REACTIVE) 07/04/22 Hepatitis C Antibody Negative (Negative) 12/16/23 Hepatitis C Ab (EIA) NON-REACTIVE (NON-REACTIVE) 07/04/22 HIV 1&2 Ab/P24 Ag 4thGn Negative (Negative) 12/16/23 HIV (1&2) Ag & Ab Conf NON-REACTIVE (NON-REACTIVE) 07/04/22 Glucose 1 Hr 50 gm 138 mg/dl (70-130) H 05/02/24 Maternal Serum AFP 27.2 ng/mL 08/29/22 OB Optional Labs: Chlamydia trachomatis RNA Not Detected (NotDetected) 12/16/23 Neisseria gonorrhoeae RNA Not Detected (NotDetected) 12/16/23 Alpha Fetoprotein Triple Screen SEE NOTE 08/29/22 Labs Reviewed: msafp neg smp low risk cfDNA smp Discharge Data Consultations 07/18/24 05:59 Consult Anesthesiology Stat Procedures Performed Operation Date: 07/18/24 07:30 Actual Procedures p Section with the of a live female child at 0753. - Jackie Daniel [place], [facility] (1) Status post delivery: (2) hemorrhage: Plan Patient was admitted and underwent a repeat lower transverse c/s without diffi culty. EBL at the time of surgery was 117cc. The patient did well in the immedate pp period and was transferred to the floor. ONce there she had intermittent passing of clots and gushing of blood. She was subsequently transferred back to labor and delivery for treatment of pph suspected to be due to uterine atony. She then got a Priyanka, TXA, methergine, rectal cytotec. She received 24 hours of iv ancef because of multiple explorations of the uterine cavity. The Priyanka remained in for approximately three hours and had significant decreased blood flow and her uterus became rock hard at the umbilicus. The suction was d/c, monitored for an hour and then removed. She remained in labor and delivery overnight and then transferred back to the floor. Her bleeding remained scant for the rest of her hospitalization. QBL for the entire process was approximately 1700cc. Her vasquez was removed and she voided, she tolerated a regular diet, ambulated and had her pain well controlled with oral pain meds. Discharge was on pod 2. d/c h/h was 8.7/25.8. INstructions were given to the patient and she will f/u minimally in 6 weeks for pp visit. Coding Level of Care Code None Diagnoses Status post delivery Z98.891 hemorrhage O72.1
== END 2024-07-20 14:10 | disposition home or self-care (01) | DRG 787 ==
LOC: 4S1 05:39 → EDSTATUS 07:30 → 4E2 12:01 → 4S1 16:59 → 4E2 07-19 09:26